=== PATIENT | female | born 1970 | race Caucasian/White ===

== ENCOUNTER 2017-06-06 12:00 | Inpatient (IN) | payer OTHER ==
[2017-06-11 12:24] VITALS: BMI 44.1
[2017-06-12] MEDS ORDERED: Fentanyl 250 MCG/5 ML VIAL ONE (06:35)
[2017-06-12] MEDS ORDERED: Ondansetron HCl/PF 4 MG/2 ML Vial ONE ×2 (06:35→07:34)
[2017-06-12] MEDS ORDERED: Famotidine/PF 20 mg/2ml Vial ONE (06:35)
[2017-06-12] MEDS ORDERED: HYDROmorphone 0.5 MG/0.5 ML SYRINGE ONE (06:35)
[2017-06-12] MEDS ORDERED: Bupivacaine HCl 0.5%/Epinephrine 1:200,000/PF 30 ml Vial ONE ×2 (06:42→07:35)
[2017-06-12] MEDS ORDERED: Scopolamine 1.5 mg/72 hour Patch ONE (06:42)
[2017-06-12] MEDS ORDERED: Atropine Sulfate 0.4 mg/1 ml Vial ONE (06:42)
[2017-06-12] MEDS ORDERED: Heparin 5,000 UNITS/ML VIAL ONE (06:42)
[2017-06-12] MEDS ORDERED: Ketorolac Tromethamine 30 MG/ML VIAL ONE (06:42)
[2017-06-12] MEDS ORDERED: cefOXitin 2 GM, Syringe 1 ML in Sterile Water 10 ML SLOW IVP SCH (07:15)
[2017-06-12] MEDS ORDERED: Midazolam HCl 2 mg/2 ml Vial ONE (07:25)
[2017-06-12] MEDS ORDERED: Glycopyrrolate 0.2 MG/ML 5 ML SYRINGE ONE (07:34)
[2017-06-12] MEDS ORDERED: PROPOFOL 200 MG/20 ML VIAL ONE (07:34)
[2017-06-12] MEDS ORDERED: Lidocaine 1% PF 5 ML VIAL ONE (07:34)
[2017-06-12] MEDS ORDERED: Dexamethasone 20 MG/5 ML VIAL ONE (07:34)
[2017-06-12] MEDS ORDERED: cefOXitin 2 GM VIAL ONE (07:43)
[2017-06-12] MEDS ORDERED: Promethazine HCl 25 MG/ML VIAL IM/IV PRN (08:53)
[2017-06-12] MEDS ORDERED: Ondansetron HCl/PF 4 MG/2 ML Vial IVP PRN ×2 (08:53→10:19)
[2017-06-12] MEDS ORDERED: HYDROmorphone 2 MG/ML VIAL SLOW IVP PRN (08:53)
[2017-06-12] MEDS ORDERED: Meperidine HCl/PF 25 MG/ML VIAL SLOW IVP PRN (08:53)
[2017-06-12] MEDS ORDERED: Fentanyl 100 MCG/2 ML VIAL ONE (09:29)
[2017-06-12] MEDS ORDERED: D5 1/2 NS w/20 mEq KCL 1,000 ML ONE (09:31)
[2017-06-12] MEDS ORDERED: Dextrose 5% in Water 1,000 ML IV PRN (10:19)
[2017-06-12] MEDS ORDERED: hydrALAZINE 20 MG/ML VIAL SLOW IVP PRN (10:19)
[2017-06-12] MEDS ORDERED: Hydrocodone-Acetamin 15 ML UDCUP PO PRN (10:19)
[2017-06-12] MEDS ORDERED: diphenhydrAMINE 50 MG/ML VIAL IVP PRN (10:19)
[2017-06-12] MEDS ORDERED: Dextrose 50% Abboject 50 ML SYRINGE SLOW IVP PRN (10:19)
[2017-06-12] MEDS ORDERED: Promethazine HCl 25 MG/ML VIAL IM PRN (10:19)
[2017-06-12] MEDS ORDERED: Pantoprazole 40 MG VIAL IVP SCH (11:00)
[2017-06-12] MEDS: Ketorolac Tromethamine 30 MG/ML VIAL IVP SCH ×3 (11:18→23:32)
[2017-06-12] MEDS: D5 1/2 NS w/20 mEq KCL 1,000 ML IV SCH ×2 (11:19→18:32)
[2017-06-12] MEDS: Morphine 2 MG/ML SYRINGE SLOW IVP PRN (20:53)
[2017-06-12] MEDS ORDERED: Morphine 2 MG/ML SYRINGE SLOW IVP PRN (21:00)
[2017-06-12] MEDS ORDERED: Enoxaparin Sodium 40 MG/0.4 ML SYRINGE SC SCH (21:00)
--- NOTE | 2017-06-12 21:29 | OP ---
DATE OF OPERATION: 06/12/2017 PREOPERATIVE DIAGNOSIS: Morbid obesity. POSTOPERATIVE DIAGNOSIS: Morbid obesity. OPERATION PERFORMED: Laparoscopic vertical sleeve gastrectomy SURGEON: Sherwin Mckee MD ANESTHESIA: General endotracheal. INDICATIONS: The patient is a 46-year-old morbidly obese white female with a preoperative BMI of smitha roximately 44. She has undergone preoperative evaluation and education and was taken to the operatin g room at this time for a vertical sleeve gastrectomy. DESCRIPTION OF OPERATION: Informed consent was obtained. The patient was taken to the operating rory m where general endotracheal anesthesia was obtained with the patient in supine position. Abdomen wa s clipped of hair, prepped with ChloraPrep, and draped in sterile fashion. Local anesthetic was infi ltrated using 0.25% Marcaine with epinephrine and a 5 mm supraumbilical incision was created through which a Veress needle was passed into the peritoneal cavity and pneumoperitoneum established using ca rbon dioxide up to a pressure of 15 mmHg. A 5 mm trocar port was passed through this same incision. Laparoscopic camera was passed through this port. Under direct vision, 4 additional laparoscopic po rts were placed including bilateral subcostal 5 mm ports, a right paramedian 12 mm port, and a left p aramedian 15 mm port. A 5 mm epigastric incision was created through which Tabitha retractor was p assed into the abdominal cavity and used to retract the left lobe of the liver. The pylorus was iden tified. Beginning 5 cm proximal to the pylorus, the omental and vascular tissue was dissected away f rom the greater curvature of the stomach in an ascending fashion using the LigaSure device. Hemostas is was maintained. The short gastric vessels were divided in a similar fashion. Posterior gastric a dhesions were divided as well. The angle of His was mobilized and the left noel of the diaphragm was dissected as well. Once complete gastric mobilization was obtained, a 36 British bougie was passed b y Anesthesia through the stomach down to the level of the pylorus. This was used as a guide for the subsequent gastrectomy. The gastrectomy was performed using several firings of the Nambe stapler, initially using a green load followed by a gold load and a series of blue loads to complete the resec tion. Great care was taken to avoid narrowing of the incisura or the gastroesophageal junction. Onc e the stomach was completely transected, the excised portion was removed through the 15 mm port site. The fascia was closed at that location using a trwxwy-sw-oofnz suture of 0 Vicryl using a GraNee ne edle. From above, an esophagogastroduodenoscopy was performed, passing the scope through the stomach to the level of the pylorus. There was no evidence of intraluminal bleeding or stricture formation. There was no air leak along the staple line as it was inspected under water. The intraluminal air was removed and the scope was removed as well. The staple line was inspected for hemostasis. Hemostasis obtained using electrocautery and/or Hemocl ips as necessary. All irrigant from within the abdomen was aspirated. The Tabitha retractor and a ll ports were removed under direct vision. Pneumoperitoneum was carefully evacuated. Quarter percen t Marcaine with epinephrine was infiltrated in each port site and skin edges approximated with 4-0 Mo nocryl subcuticular suture. Dermabond was placed externally. There were no complications. The kenna ent tolerated the procedure well and was taken to recovery room in stable condition. FINDINGS: The patient had no significant anatomic abnormality. The blood loss was essentially none. There were no complications. Post-procedure EGD was also unremarkable. There was mild oozing from the staple line, it was easily controlled with placement of Hemoclips. The patient was taken to the recovery room in stable condition.
[2017-06-13] MEDS: D5 1/2 NS w/20 mEq KCL 1,000 ML IV SCH (02:39)
[2017-06-13] MEDS: Morphine 2 MG/ML SYRINGE SLOW IVP PRN (05:01)
[2017-06-13] MEDS: Ketorolac Tromethamine 30 MG/ML VIAL IVP SCH (05:07)
[2017-06-13 05:53] LABS: #Lymphocytes 1.5 thou/uL (1.20-3.40); #Neutrophils 11.3 thou/uL (1.40-6.50); %Basophils 0.1 % (0.0-1.0); %Eosinophils 0.1 % (0.0-10.0); %Monocytes 7.2 % (0.0-10.0); %Neutrophils 81.6 % (42.0-75.0); Hemoglobin 12.3 g/dL (12.0-16.0); Mean Corpuscular HGB CONC 35.3 g/dL (32.0-36.0); Mean Corpuscular Hemoglobin 35.3 pg (27.0-31.0); Mean Platelet Volume 8.3 fL (7.4-10.4); Platelet Count 219 thou/uL (130-400); RBC Distribution Width 11.7 % (11.5-14.5); Red Blood Cell (RBC) Count 3.47 mill/uL (4.20-5.40); White Blood Cell (WBC) Count 13.9 thou/uL (4.8-10.8)
[2017-06-13 06:00] LABS: Anion Gap 10 mmol/L (10-20); BUN (Urea Nitrogen) 8 mg/dL (7.0-18.7); Calc. Creatinine Clearance 188 mL/min (70-130); Calcium 8.3 mg/dL (7.8-10.44); Carbon Dioxide 20 mmol/L (22-29); Chloride 111 mmol/L (98-107); Estimated GFR-MDRD Greater than 90; Glucose 106 mg/dL (70-105); Potassium 3.9 mmol/L (3.5-5.1); Sodium 137 mmol/L (136-145)
[2017-06-13] MEDS ORDERED: Pantoprazole 40 MG VIAL IVP SCH (09:00)
[2017-06-13 12:05] VITALS: BP 110/70; TEMP 98.1
--- NOTE | 2017-06-16 11:46 | DIS ---
DATE OF ADMISSION: 06/12/2017 DATE OF DISCHARGE: 06/13/2017 ADMISSION DIAGNOSIS: Morbid obesity. DISCHARGE DIAGNOSIS: Morbid obesity. OPERATION PERFORMED: Laparoscopic vertical sleeve gastrectomy. Surgeon, Dr. Sherwin Mckee. ADMISSION HISTORY: The patient is a 46-year-old morbidly obese white female. She had undergone preo perative evaluation and education and was felt to be an appropriate candidate for bariatric surgery. She was brought in at this time for her sleeve gastrectomy. HOSPITAL COURSE: She underwent uneventful surgery on the day of her operation. She was hemodynamica lly stable and tolerating sips of clear liquids on the day of surgery. On postoperative day #1, she advanced her diet and was tolerating adequate amounts of bariatric clear liquids and ambulating well. Her pain was well controlled. She was felt to be stable for discharge. She was discharged home on postoperative day #1 with a prescription for hydrocodone elixir to use as necessary. She will follo w up with myself in my office in 2 weeks for routine followup.
== END 2017-06-13 12:43 | disposition home or self-care (01) | DRG 621 ==
LOC: SURG A 06-12 06:00
PROVIDERS: ADMIT Specialist; ATTEND Specialist
PROC: 0DB64Z3 Excision of Stomach, Percutaneous Endoscopic Approach, Vertical (ICD-10-PCS; principal; 2017-06-12)
DX: E66.01 Morbid (severe) obesity due to excess calories (principal); Z68.41 Body mass index [BMI] 40.0-44.9, adult
CPT/HCPCS: 36415; 80048; 85025; 88307; 88312; 94760; A4216; C9113; J0131; J0461; J0670; J0694; J1100; J1170; J1644; J1650; J1885; J2001; J2250; J2270; J2405; J2550; J2704; J3010; S0028

== ENCOUNTER 2018-01-19 08:57 | Outpatient (CLI) | payer OTHER | END 2018-01-19 08:58 | disposition home or self-care (01) | LOC: BICMAMMO 08:57 | PROVIDERS: ATTEND Family Medicine | DX: Z12.31 Encounter for screening mammogram for malignant neoplasm of breast (principal); N64.89 Other specified disorders of breast; Z80.3 Family history of malignant neoplasm of breast | CPT/HCPCS: 77063; 77067 ==

== ENCOUNTER 2019-01-24 15:40 | Observation (INO) | payer OTHER ==
[2019-01-24] MEDS ORDERED: Enoxaparin Sodium 60 MG/0.6 ML SYRINGE ONE (16:32)
[2019-01-24 16:54] LABS: CKMB 1.1 ng/mL (0-6.6)
[2019-01-24 19:39] LABS: Troponin I 0.036 ng/mL (< 0.028)
[2019-01-24] MEDS ORDERED: Calcium Carbonate 500 MG ChewTAB PO PRN (19:52)
[2019-01-24] MEDS ORDERED: Guaifenesin DM 100-10/5 ML UDCUP PO PRN (19:52)
[2019-01-24] MEDS ORDERED: Acetaminophen 325 MG TAB PO PRN (19:52)
[2019-01-24] MEDS ORDERED: Sodium Chloride 0.9% 1,000 ML IV SCH (20:00)
--- NOTE | 2019-01-24 21:47 | HP ---
REASON FOR ADMISSION: Chest pain/palpitations. HISTORY OF PRESENTING ILLNESS: The patient gives history of developing palpitations around 09:45 a.m. This happened while she was resting. This lasted for nearly 25 minutes. The patient has never had such episodes in the past. She also developed mild chest discomfort associated with it. EMS was summoned and the patient was taken to [facility], from where she was referred here. No complaints of fever, throat pain, cough, or expectoration. No PND or orthopnea. No prior cardiac workup or thyroid disorder. The patient has lost nearly 115 pounds after having had bariatric surgery in June 2017. PAST MEDICAL AND SURGICAL HISTORY: 1. Bariatric surgery with gastric sleeve done in June 2017 with loss of nearly 115 pounds now. She was weighing 257 pounds before that. 2. Hysterectomy. CURRENT MEDICATIONS: She takes; 1. Multivitamin. 2. Calcium with vitamin D. 3. Folic acid. ALLERGIES: INTOLERANCE TO NSAID DUE TO GASTRIC SLEEVE PROCEDURE, IT IS LIKELY A PRECAUTION TO PREVENT ULCERATION. PERSONAL HISTORY: Quit smoking in 2004. Does not abuse alcohol or drugs. Lives with her . FAMILY HISTORY: Both parents are living. Mother has history of diabetes, hypertension, and dyslipidemia. Father is healthy. CODE STATUS: Full. POWER OF UNDERWEAR CUTTER: Her . REVIEW OF SYSTEMS: CONSTITUTIONAL: Negative for weight loss or gain, ability to conduct usual activities. SKIN: Negative for rash, itching. EYES: Negative for double vision, pain. ENT/MOUTH: Negative for nose bleeding, neck stiffness, pain, tenderness. CARDIOVASCULAR: Negative for palpitations, dyspnea on exertion, orthopnea. RESPIRATORY: Negative for shortness of breath, wheezing, cough, hemoptysis, fever or night sweats. GASTROINTESTINAL: Negative for poor appetite, abdominal pain, heartburn, nausea , vomiting, constipation, or diarrhea. GENITOURINARY: Negative for urgency, frequency, dysuria, nocturia. MUSCULOSKELETAL: Negative for pain, swelling. NEUROLOGIC/PSYCHIATRIC: Negative for anxiety, depression. ALLERGY/IMMUNOLOGIC: Negative for skin rash, bleeding tendency. PHYSICAL EXAMINATION: GENERAL: The patient is a 48-year-old female, who is currently not in any acute distress. VITAL SIGNS: Blood pressure 124/80, pulse 80 per minute, respiratory rate 16 per minute, temperature 98.3 degrees Fahrenheit, saturating 99% on room air. NECK: Supple. No elevated JVD. HEENT: Eyes; extraocular muscles intact. Pupils reacting to light. Oral cavity; mucous membranes are dry. No exudates or congestion. CARDIOVASCULAR: S1, S2 heard. Regular rhythm. RESPIRATORY: Air entry 1+ bilateral. No rales or rhonchi. ABDOMEN: Soft. Bowel sounds heard. No tenderness, rigidity, or guarding. EXTREMITIES: No peripheral edema or calf tenderness. VASCULAR: Peripheral pulses 2+ bilateral. No ischemic ulcerations or gangrene. CENTRAL NERVOUS SYSTEM: No gross focal deficits noted. The patient is alert, awake, and oriented well. PSYCHIATRIC: The patient's mood is euthymic. No hallucinations or delusions. LABORATORY AND IMAGING DATA: Chest x-ray done shows no acute cardiopulmonary abnormality. Urine drug screen is negative. UA is negative for any infection. Troponin first set was negative, but has indeterminate troponin after that peaking up to 0.05. CK-MB 1.1. Albumin is 4.2. TSH 1.45. Liver enzymes within normal limits. Serum electrolytes are within normal limits. BUN 13, creatinine 0.7, serum bicarb 26, magnesium is 2.0. D-dimer is 0.39. White count of 6, H and H of 14 and 45, platelet count 206, MCV is 96 with 62% neutrophils. EKG done shows normal sinus rhythm at 96 beats per minute. There is occasional PVC seen. CLINICAL IMPRESSION AND PLAN: The patient will be under observation on telemetry for palpitations lasting 20 to 25 minutes with associated chest pain. She has had significant history of bariatric surgery and losing nearly 115 pounds. The patient says she has close followup with Dr. Mckee office for the same and is on a multivitamin with minerals, calcium, and folic acid. She currently appears a bit dehydrated and we will place her on normal saline at 70 mL/hr. She got a dose of 100 mg IV thiamine in view of prior bariatric surgery. We will place her on Lopressor 25 mg twice daily, full-dose aspirin for now. Echo with 2D Doppler for LV function and a nuclear stress test as well. Thyroid function tests will be ordered for the morning. We will obtain consultation with Dr. Rivera, who is on-call for Cardiology in the morning. The patient likely will need a Holter/event monitor if all her workup is negative here. Job ID: [id number] [facility]
[2019-01-24 22:18] VITALS: BMI 23.7
[2019-01-24] MEDS: Famotidine 20 MG TAB PO SCH (22:22)
[2019-01-24 22:38] LABS: Troponin I 0.016 ng/mL (< 0.028)
[2019-01-24] MEDS: Metoprolol Tartrate 25 MG TAB PO SCH (22:58)
[2019-01-25 04:29] LABS: #Basophils 0.1 thou/uL (0.0-0.2); #Eosinphils 0.1 thou/uL (0.0-0.7); #Lymphocytes 2.8 thou/uL (1.20-3.40); #Monocytes 0.5 thou/uL (0.11-0.59); #Neutrophils 3.1 thou/uL (1.40-6.50); %Basophils 1.1 % (0.0-1.0); %Eosinophils 1.6 % (0.0-10.0); %Lymphocytes 42.5 % (21.0-51.0); %Monocytes 7.6 % (0.0-10.0); %Neutrophils 47.2 % (42.0-75.0); Hemoglobin 13.3 g/dL (12.0-16.0); Mean Corpuscular HGB CONC 34.4 g/dL (32.0-36.0); Mean Corpuscular Hemoglobin 33.7 pg (27.0-31.0); Mean Corpuscular Volume 98.2 fL (78.0-98.0); Mean Platelet Volume 7.6 fL (7.4-10.4); Platelet Count 188 thou/uL (130-400); RBC Distribution Width 10.8 % (11.5-14.5); Red Blood Cell (RBC) Count 3.95 mill/uL (4.20-5.40); White Blood Cell (WBC) Count 6.6 thou/uL (4.8-10.8)
[2019-01-25 04:49] LABS: Anion Gap 7 mmol/L (10-20); BUN (Urea Nitrogen) 12 mg/dL (7.0-18.7); Calc. Creatinine Clearance 90 mL/min (70-130); Calcium 8.3 mg/dL (7.8-10.44); Carbon Dioxide 27 mmol/L (22-29); Cardiac Risk 2.9 (Less than 4.5); Chloride 109 mmol/L (98-107); Cholesterol 144 mg/dl (< 200 Desired); Estimated GFR-MDRD 82; Glucose 79 mg/dL (70-105); HDL Cholesterol 50 mg/dL (>60 Neg Risk); LDL Cholesterol, Calculated 80 mg/dL; Sodium 139 mmol/L (136-145); Triglycerides 69 mg/dL (Less than 150)
[2019-01-25 05:07] LABS: Free T4 (Free Thyroxine) 0.86 ng/dL (0.70-1.48); Thyroid Stimulating Hormone 2.2538 uIU/mL (0.35-4.94)
[2019-01-25] MEDS ORDERED: Aspirin 325 mg Enteric Coated Tablet PO SCH (09:00)
[2019-01-25] MEDS: Metoprolol Tartrate 25 MG TAB PO SCH (09:39)
[2019-01-25] MEDS: Famotidine 20 MG TAB PO SCH (09:39)
--- NOTE | 2019-01-25 14:48 | NM ---
CARDIAC SPECT: HISTORY: A 48-year-old female with chest pain and palpitations. TECHNIQUE: A myocardial perfusion scan is performed using the single-isotope 1-day protocol with Technetium 99m sestamibi. Eleven mCi were injected intravenously for the rest exam followed by 29 mCi for the stres s study. Exercise stress was monitored and interpreted by Dr. Rivera. FINDINGS: Homogeneous tracer distribution is seen in the myocardial segments on stress and rest images without fixed or reversible defects. GATED SPECT LVEF: 69%. WALL MOTION EXAM: Normal. IMPRESSION: Normal myocardial perfusion scan. POS: [facility]
[2019-01-25 17:20] VITALS: BP 110/64; TEMP 97.9
--- NOTE | 2019-01-25 18:24 | DIS ---
DATE OF ADMISSION: 01/24/2019 DATE OF DISCHARGE: 01/25/2019 DISCHARGE DISPOSITION: Home. PRIMARY DISCHARGE DIAGNOSIS: Palpitations for further evaluation with event monitor. SECONDARY DISCHARGE DIAGNOSIS: History of bariatric surgery with gastric sleeve , losing nearly 115 pounds from June of 2017. Chest pain secondary to palpitations, resolved. PROCEDURES DONE DURING HOSPITALIZATION: Nuclear stress test done showed no reversible ischemia. Ejection fraction was 69%. Echo with 2D Doppler showed EF of 50% to 55%. with no significant valvular abnormalities. Left atrial size was 4.0 cm. H and H 13 and 38, platelet count 188, MCV was 98. Free T4 0.86, free T3 2.20, TSH 2.25. Total cholesterol 144, triglyceride 69, LDL 80. DISCHARGE MEDICATION: 1. Folic acid 1 mg p.o. daily. 2. Multivitamin one capsule twice daily. 3. Aspirin 325 mg p.o. daily. 4. Lopressor 25 mg twice daily. 5. Calcium with vitamin D 1 tablet twice daily. ALLERGIES: NO KNOWN DRUG ALLERGIES. DISCHARGE PLAN: The patient to follow up with her primary care physician, Ms. Hetal Collins in 1 week. She also needs to follow up with Dr. Rivera as advised BRIEF COURSE DURING HOSPITALIZATION: The patient initially came to ER with complaints of nearly 45 minutes of palpitations at home. She also had chest pain associated with it. In view of this history, patient was placed under observation on telemetry. There were no arrhythmias noted on telemetry monitoring. The patient has had a nuclear stress test done which showed no evidence of reversible ischemia. Echo did not reveal any valvular abnormalities or thrombus. The left atrial size was generous at 4 cm. She was evaluated by Dr. Rivera for Cardiology. Dr. Rivera's office will arrange for an event monitor to look for arrhythmias if it were to recur. She needs to follow up with Dr. Rivera as advised and primary care physician in 1 week. The patient was placed on a full-dose aspirin along with low-dose Lopressor as a precaution due to history of palpitations lasting nearly 45 minutes. This can be discontinued if event monitor does not reveal any arrhythmias. Please note, I have seen and examined the patient on the day of discharge. Job ID: [id number] [facility]
--- NOTE | 2019-01-25 21:18 | CON ---
DATE OF CONSULTATION: HISTORY: Margoth Yang is a 48-year-old white female, who has never had any cardiac problems before. She was admitted last night after she developed palpitations while sitting and watching TV. She had a wrist blood pressure monitor and this showed that her heart rate was 110 and then 120. She also developed mild chest pressure with this. She then was brought to the emergency room for further evaluation. PAST MEDICAL HISTORY: Obesity with gastric sleeve surgery in June 2017 and has lost 115 pounds during that time. OPERATIONS: Gastric sleeve and hysterectomy. MEDICATIONS: 1. Folic acid. 2. Calcium with vitamin D. 3. Multivitamin. ALLERGIES: SHE IS INTOLERANT TO NSAIDS DUE TO GASTRIC SLEEVE SURGERY. SOCIAL HISTORY: She smoked until 2004. She does not drink. Past medical history is negative for coronary artery disease. REVIEW OF SYSTEMS: A 12-point review of systems is otherwise unremarkable. PHYSICAL EXAMINATION: VITAL SIGNS: Blood pressure 124/78, pulse 56. HEENT: PERRL. NECK: Supple. CHEST: Clear. CARDIAC: S1 and S2 normal without any S3, S4, or murmurs. ABDOMEN: Normal bowel sounds without tenderness or organomegaly. EXTREMITIES: Revealed no clubbing, cyanosis, or edema. NEUROLOGICAL: Grossly intact. LABORATORY DATA: Cardiolite treadmill was negative with the patient exercised for 9 minutes. Echocardiogram revealed normal left ventricular function with ejection fraction of 50% to 55%, mild mitral regurgitation and mild tricuspid regurgitation. She has had no arrhythmias on the monitor. Hemoglobin 13.3, hematocrit 38.8, white count 6600, platelets 188,000. Sodium 139, potassium 4.0, chloride 109, carbon dioxide 27, BUN 12, creatinine 0.76. Troponin I of 0.058. Cholesterol 144, triglycerides 69, HDL 50, and LDL 80. TSH, free T4 and free T3 are normal. IMPRESSION: 1. Palpitations of uncertain etiology. 2. Normal Cardiolite treadmill test. 3. Normal ejection fraction. 4. Non ST-elevation myocardial infarction type 2. PLAN: A 30-day monitor has been placed on the patient and I will continue to follow up with her. I feel the patient may be discharged and I will follow up with her in the office. Job ID: [id number] [facility]
--- NOTE | 2019-01-30 15:22 | EKG ---
Test Reason : Blood Pressure : / mmHG Vent. Rate : 073 BPM Atrial Rate : 073 BPM P-R Int : 166 ms QRS Dur : 084 ms QT Int : 412 ms P-R-T Axes : 064 011 048 degrees QTc Int : 453 ms Normal sinus rhythm with sinus arrhythmia Normal ECG Confirmed by JIN MCDANIEL, EZ ([id number]), art editor JESÚS INGRAM ([id number]) on 01/30/2019 3:21:49 PM Referred By: Confirmed By:EZ ABDI MD
--- NOTE | 2019-02-01 10:46 | STRESS ---
Acquisition Time: 2019-01-25 09:46:53 Total Exercise Time: 00:09:00 Test Indications: CHEST PAIN Medications: Protocol: URSULA Max HR: 160 BPM 91% of Pred: 174 BPM Max BP: 148/074 mmHG Max Work Load: 10.1 METS RESTING ECG: NORMAL SINUS RHYTHM WITH OCCASIONAL PVCs SYMPTOMS: DYSPNEA ON EXERTION NORMAL BP RESPONSE ECTOPY: RARE PVCs ECG STRESS: NO SIGNIFICANT CHANGES INTERPRETATION: NEGATIVE GXT/AWAIT NUCLEAR IMAGES FOR DEFINITIVE DIAGNOSIS Confirmed by DANI LUCAS ([id number]), art editor KHANH ABEL ([id number]) on 02/01/2019 10:46:27 AM Referred By: MD Bogdan MCRAE Confirmed By:DANI LUCAS
== END 2019-01-25 18:07 | disposition home or self-care (01) ==
LOC: ERS 15:40 → ERHOLD 16:35 → 2SW 21:59
PROVIDERS: ADMIT Internal Medicine; ATTEND Internal Medicine
DX: R00.2 Palpitations (principal); R07.89 Other chest pain; I21.A1 Myocardial infarction type 2; Z87.891 Personal history of nicotine dependence; Z79.899 Other long term (current) drug therapy; Z88.6 Allergy status to analgesic agent; Z98.84 Bariatric surgery status
CPT/HCPCS: 36415; 78452; 80048; 80061; 82553; 84439; 84443; 84481; 85025; 85379; 93005; 93017; 93306; 94760; 96361; 96365; 96372; A9500; G0378; J1650; J3411

== ENCOUNTER 2019-02-22 10:51 | Outpatient (CLI) | payer OTHER ==
--- NOTE | 2019-02-22 11:20 | MMO ---
Bilateral MAMMO Bilat Screen [facility]. CLINICAL HISTORY: Patient is 48 years old and is seen for screening. The patient has the following family history of breast cancer: paternal aunt, great. The patient has no personal history of cancer. VIEWS: The views performed were: bilateral craniocaudal with tomosynthesis and bilateral mediolateral oblique with tomosynthesis. FILMS COMPARED: The present examination has been compared to prior imaging studies performed at [facility] on 12/14/2014 and 08/17/2015, and at [facility] on 11/27/2016 and 01/19/2018. This study has been interpreted with the assistance of computer-aided detection. MAMMOGRAM FINDINGS: There are scattered fibroglandular densities. There are no suspicious masses, suspicious calcifications, or new areas of architectural distortion. IMPRESSION: THERE IS NO MAMMOGRAPHIC EVIDENCE OF MALIGNANCY. A ROUTINE FOLLOW-UP MAMMOGRAM IN 1 YEAR IS RECOMMENDED. THE RESULTS OF THIS EXAM WERE SENT TO THE PATIENT. ACR BI-RADS Category 1 - Negative MAMMOGRAPHY NOTE: 1. A negative mammogram report should not delay a biopsy if a dominant of clinically suspicious mass is present. 2. Approximately 10% to 15% of breast cancers are not detected by mammography. 3. Adenosis and dense breasts may obscure an underlying neoplasm. Reported by: ELIA GAYTAN MD Electonically Signed: [id number]
== END 2019-02-22 10:52 | disposition home or self-care (01) ==
LOC: BICMAMMO 10:51
PROVIDERS: ATTEND Nurse Practitioner
DX: Z12.31 Encounter for screening mammogram for malignant neoplasm of breast (principal); Z80.3 Family history of malignant neoplasm of breast
CPT/HCPCS: 77063; 77067

== ENCOUNTER 2020-02-24 12:57 | Outpatient (CLI) | payer OTHER ==
--- NOTE | 2020-02-24 14:34 | MMO ---
Bilateral MAMMO Bilat Screen [facility]. CLINICAL HISTORY: Patient is 49 years old and is seen for screening. The patient has the following family history of breast cancer: paternal aunt, great. The patient has no personal history of cancer. VIEWS: The views performed were: bilateral craniocaudal with tomosynthesis and bilateral mediolateral oblique with tomosynthesis. FILMS COMPARED: The present examination has been compared to prior [place] [facility], and at [facility] on 11/27/2016, 01/19/2018 and 02/22/2019. This study has been interpreted with the assistance of computer-aided detection. MAMMOGRAM FINDINGS: There are scattered fibroglandular densities. There are no suspicious masses, suspicious calcifications, or new areas of architectural distortion. IMPRESSION: THERE IS NO MAMMOGRAPHIC EVIDENCE OF MALIGNANCY. A ROUTINE FOLLOW-UP MAMMOGRAM IN 1 YEAR IS RECOMMENDED. THE RESULTS OF THIS EXAM WERE SENT TO THE PATIENT. ACR BI-RADS Category 1 - Negative MAMMOGRAPHY NOTE: 1. A negative mammogram report should not delay a biopsy if a dominant of clinically suspicious mass is present. 2. Approximately 10% to 15% of breast cancers are not detected by mammography. 3. Adenosis and dense breasts may obscure an underlying neoplasm. Reported by: HENRIETTA NICK MD Electonically Signed: [id number]
== END 2020-02-24 12:58 | disposition home or self-care (01) ==
LOC: BICMAMMO 12:57
PROVIDERS: ATTEND Nurse Practitioner
DX: Z12.31 Encounter for screening mammogram for malignant neoplasm of breast (principal); Z80.3 Family history of malignant neoplasm of breast
CPT/HCPCS: 77063; 77067

== ENCOUNTER 2021-02-26 08:23 | Outpatient (CLI) | payer OTHER | END 2021-02-26 08:24 | disposition home or self-care (01) | LOC: BICMAMMO 08:23 | PROVIDERS: ATTEND Nurse Practitioner | DX: Z12.31 Encounter for screening mammogram for malignant neoplasm of breast (principal); Z80.3 Family history of malignant neoplasm of breast | CPT/HCPCS: 77063; 77067 ==

== ENCOUNTER 2022-04-17 13:09 | Outpatient (CLI) | payer OTHER | END 2022-04-17 13:10 | disposition home or self-care (01) | LOC: BICMAMMO 13:09 | PROVIDERS: ATTEND Nurse Practitioner | DX: Z12.31 Encounter for screening mammogram for malignant neoplasm of breast (principal); Z80.3 Family history of malignant neoplasm of breast | CPT/HCPCS: 77063; 77067 ==

== ENCOUNTER 2023-05-21 10:42 | Outpatient (CLI) | payer OTHER | END 2023-05-21 10:43 | disposition home or self-care (01) | LOC: BICMAMMO 10:42 | PROVIDERS: ATTEND Specialist | DX: Z12.31 Encounter for screening mammogram for malignant neoplasm of breast (principal); Z80.3 Family history of malignant neoplasm of breast | CPT/HCPCS: 77063; 77067 ==

== ENCOUNTER 2024-05-26 09:27 | Outpatient (CLI) | payer OTHER | END 2024-05-26 09:28 | disposition home or self-care (01) | LOC: BICMAMMO 09:27 | DX: Z12.31 Encounter for screening mammogram for malignant neoplasm of breast (principal); Z80.3 Family history of malignant neoplasm of breast | CPT/HCPCS: 77063; 77067 ==